=== PATIENT | female | born 1955 | race Asian ===

== ENCOUNTER 2016-11-14 14:12 | Outpatient (CLI) | payer OTHER | END 2016-11-14 14:13 | disposition home or self-care (01) | DX: M35.2 Behcet's disease (principal) ==

== ENCOUNTER 2017-01-01 09:32 | Emergency (ER) | payer OTHER ==
[2017-01-01] MEDS ORDERED: oxyCOD/ACETAMIN 5 MG/325 MG TABLET PO STA (11:46)
[2017-01-01] MEDS ORDERED: CLINDAMYCIN 150 MG CAPSULE PO STA (11:46)
[2017-01-01] MEDS ORDERED: TETANUS/DIPHTHERIA/PERTUSSIS 0.5 ML SYRINGE IM ONE ×2 (11:47→11:56)
[2017-01-01] MEDS ORDERED: oxyCOD/ACETAMIN 5 MG/325 MG TABLET PO ONE (11:55)
[2017-01-01] MEDS ORDERED: CLINDAMYCIN 150 MG CAPSULE PO ONE (11:56)
== END 2017-01-01 13:36 | disposition home or self-care (01) ==
DX: S92.515B Nondisplaced fracture of proximal phalanx of left lesser toe(s), initial encounter for open fracture (principal); W20.8XXA Other cause of strike by thrown, projected or falling object, initial encounter; Z23 Encounter for immunization; M20.12 Hallux valgus (acquired), left foot; M21.612 Bunion of left foot
CPT/HCPCS: 73630; 90471; 90715; 99283; 99284; A9270

== ENCOUNTER 2017-03-27 08:00 | Outpatient (CLI) | payer OTHER ==
[2017-03-27 18:49] LABS: BASOPHILS % (AUTO) 0.6 %; EOSINOPHILS # (AUTO) 0.1 10^3/uL (0.0-0.7); EOSINOPHILS % (AUTO) 1.3 %; HCT - HEMATOCRIT 41.5 % (37.0-47.0); HGB - HEMOGLOBIN 13.8 g/dL (12.0-16.0); LYMPHOCYTES # (AUTO) 1.9 10^3/uL (1.5-3.5); LYMPHOCYTES % (AUTO) 29.2 %; MEAN CORPUSCULAR HEMOGLOBIN 30.5 pg (27.0-31.0); MEAN CORPUSCULAR HGB CONC 33.4 g/dL (32.0-36.0); MEAN CORPUSCULAR VOLUME 91.5 fL (81.0-99.0); MONOCYTES # (AUTO) 0.5 10^3/uL (0.0-1.0); MONOCYTES % (AUTO) 7.2 %; NEUTROPHILS % (AUTO) 61.7 %; NUCLEATED RED BLOOD CELLS AUTO 0.1 /100WBC; RED BLOOD COUNT 4.54 10^6/uL (4.20-5.40); RED CELL DISTRIBUTION WIDTH 14.4 % (12.0-15.0); UNCORRECTED WHITE BLOOD COUNT 6.5 x10^3/uL; WHITE BLOOD COUNT 6.5 x10^3/uL (4.8-10.8)
[2017-03-27 19:09] LABS: ALBUMIN/GLOBULIN RATIO 1.2 (1.0-2.2); BILIRUBIN,TOTAL 0.5 mg/dL (0.2-1.0); CALCIUM 9.3 mg/dL (8.5-10.3); CREATININE 0.8 mg/dL (0.4-1.0); POTASSIUM 3.9 mmol/L (3.5-5.0); TOTAL PROTEIN 7.7 g/dL (6.7-8.2)
== END 2017-03-27 08:01 ==
LOC: LAB.WCP 08:00
PROVIDERS: ATTEND Internal Medicine Rheumatology
DX: M35.2 Behcet's disease (principal)
CPT/HCPCS: 36415; 80053; 85025; 85651

== ENCOUNTER 2017-04-02 08:00 | Outpatient (CLI) | payer OTHER | END 2017-04-02 08:01 | LOC: LAB.WCP 08:00 | PROVIDERS: ATTEND Internal Medicine Rheumatology | DX: M35.2 Behcet's disease (principal); M62.81 Muscle weakness (generalized) | CPT/HCPCS: 36415; 82550; 84443 ==

== ENCOUNTER 2017-04-10 12:08 | Emergency (ER) | payer OTHER ==
--- NOTE | 2017-04-10 13:11 | XRAY Preliminary Report ---
Exam: XR Ankle 3 View LT IMPRESSION: No bony abnormality. [facility] SITE ID: [id number]
--- NOTE | 2017-04-10 13:15 | XRAY Report ---
EXAM: LEFT ANKLE RADIOGRAPHY EXAM DATE: 04/10/2017 12:51 PM. CLINICAL HISTORY: Pain since a fall on 04/21/2017. Swelling for the last week. COMPARISON: No prior ankle. Left foot 01/01/2017. TECHNIQUE: 3 views. FINDINGS: Bones: Normal. No fractures or bone lesions. Joints: Normal. No effusion. No subluxations. The ankle mortise is normally aligned. Soft Tissues: Moderate edema over the lateral malleolus and hindfoot. IMPRESSION: No bony abnormality. [facility] Referring Provider Line: [phone] SITE ID: [id number]
--- NOTE | 2017-04-10 13:19 | ED Physician Documentation ---
History of Present Illness - Stated complaint Stated Complaint: LEFT FOOT SWELLING - Chief complaint Chief Complaint: Ext Problem - Additonal information Additional information: hx from pt to ER for 2 reasons 1) she injured her l foot in January, saw ortho, no surgery, healed, then fell March 24 and twisted l ankle, able to walk on it since but painful, now it is newly swollen and discolored, hurts to walk but no pain with passive ROM 2) subj fever and chills X 2 days and [facility] told her come to the ER t get worked up before she gets remocade infusion for Behcets tomorrow, no cough, no NVD, no urinary sx Review of Systems Constitutional: reports: Fever (subjective). 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, Other HEENT: Cataracts, Tonsil/Adenoidectomy - Present Medications Home Medications: Ambulatory Orders Medication Instructions Recorded Confirmed Acetaminophen [Tylenol] 650 mg [place] ONCE 02/18/13 04/10/17 Alendronate Sodium [Fosamax] 35 mg PO Q7D 02/18/13 04/10/17 Folic Acid 1 mg PO DAILY 02/18/13 04/10/17 Loratadine [Claritin] 10 mg PO ONCE PRN 02/18/13 04/10/17 Methotrexate 5 mg PO ONCE 02/18/13 04/10/17 Multivitamin [Multi-Vitamin Daily] 1 each PO DAILY 02/18/13 04/10/17 Prednisone 1 mg PO DAILY 02/18/13 04/10/17 Hydrochlorothiazide 1 tab PO DAILY 06/30/15 04/10/17 Saccharomyces Boulardii [Florastor] 250 mg PO BID #20 capsule 01/01/17 04/10/17 - Allergies Allergies/Adverse Reactions: Allergies Allergy/AdvReac Type Severity Reaction Status Date / Time ketorolac tromethamine * Allergy Unknown Itching Verified 04/10/17 13:16 [From Toradol] Penicillins Allergy Unknown Itching Verified 04/10/17 13:16 - Social History Does the pt smoke?: No Smoking Status: Never smoker Does the pt drink ETOH?: No Does the pt have substance abuse?: No PD ED PE NORMAL - Vitals Vital signs reviewed: Yes - HEENT HEENT: PERRL - Neck Neck: Supple, no meningeal sign - Cardiac Cardiac: RRR - Respiratory Respiratory: No respiratory distress, Clear bilaterally - Abdomen Abdomen: Soft, Non tender - Extremities Extremities: Other (L ankle swollen, slight reddish discoloration, no warmth, able to fully range passivle s any pain, TTP servando mall, MSV intact, no open wounds, no calf or popliteal TT) - Neuro Neuro: Alert and oriented X 3, No motor deficit, No sensory deficit Results - Vitals Vitals: Vital Signs - 24 hr 04/10/17 12:23 Temperature 36.2 C L Heart Rate 76 Respiratory 16 Rate Blood Pressure 141/76 H O2 Saturation 100 Oxygen O2 Source Room air - Labs Labs: Laboratory Tests 04/10/17 04/10/17 04/10/17 13:35 13:54 13:54 WBC 8.4 RBC 4.31 Hgb 12.9 Hct 39.1 MCV 90.6 MCH 30.0 MCHC 33.1 RDW 14.6 Plt Count 209 MPV 7.9 Neut # 6.0 Lymph # 1.5 [place] # 0.7 Eos # 0.1 Baso # 0.1 Absolute Nucleated RBC 0.00 Nucleated RBCs 0.0 ESR 48 H C-Reactive Protein Urine Color YELLOW Urine Clarity CLEAR Urine pH 7.0 Ur Specific [place] 1.015 Urine Protein NEGATIVE Urine Glucose (UA) NEGATIVE Urine Ketones NEGATIVE Urine Occult Blood TRACE-INTA Urine Nitrite NEGATIVE Urine Bilirubin NEGATIVE Urine Urobilinogen 0.2 (NORMAL) Ur Leukocyte Esterase NEGATIVE Ur Microscopic Review NOT INDICATED Urine Culture Comments NOT INDICATED 04/10/17 13:54 WBC RBC Hgb Hct MCV MCH MCHC RDW Plt Count MPV Neut # Lymph # [place] # Eos # Baso # Absolute Nucleated RBC Nucleated RBCs ESR C-Reactive Protein 12.2 H Urine Color Urine Clarity Urine pH Ur Specific Ed[place] Urine Protein Urine Glucose (UA) Urine Ketones Urine Occult Blood Urine Nitrite Urine Bilirubin Urine Urobilinogen Ur Leukocyte Esterase Ur Microscopic Review Urine Culture Comments - Rads (name of study) CXR Radiology: See rad report (NACPD) ankle Radiology: See rad report (STS no bony abn) PD MEDICAL DECISION MAKING - ED course ED course: issue 1 - ankle pain and swelling - subj fever at home but afebrile here nl WBC swollen and slightly dicolored but no warmth and absolutely no pain with passive ROM so doubt septic joint or gout, could be post trauatic with effusion and aged bruising but per pt dies seems like a delayed onset of findings, possibly inflammatory as pt has hx of behcets and elev inflammatory markers, will CE and rec ice and elev and refe to ortho for further eval issue 2 - subj fever at home, afebrile here, nl CXR neg urine, nl WBC, do not feel ankle in infected, think she can get her remicade infusion tomorrow but she should advise [facility] of sx and ER results that are available for them to review prior to making final decision Departure - Departure Disposition: Home, Self Care Clinical Impression: Ankle effusion Qualifiers: Laterality: left Qualified Code(s): M25.472 - Effusion, left ankle Condition: Good Follow-Up: [facility] [Provider Group] Carmen Osei DO [Primary Care Provider] - Comments: Your ankle is swollen and discolored. But the xrays do not show any bony abnormality. And the exam does not suggest an infected joint or gout. The swelling and discoloration could be from your ankle injury on March 24, or could be due to your Behcets - I recommend using an MAIA wrap to decrease the swelling and elevating and applying ice to the ankle for 20 minutes several times a day. Please call the orthopedic office to schedule follow up for further evaluation and management As far as your recent fevers, there is no fever here, your white blood cell count is normal, and there is no infection noted on exam or on your xray or urine sample. I would think it is OK for you to get your remicade infusion as planned - but be sure to let the [facility] staff know about your subjective fevers at home and they can review the ER test results and make the final decision about whether to proceed with the infusion. And please follow up with your PMD to get your blood pressure rechecked - it was high today
[2017-04-10 13:50] LABS: BILIRUBIN,URINE NEGATIVE (NEGATIVE)
[2017-04-10 13:51] LABS: UA CHARGE (STRIP ONLY) YES; UR CULTURE IF IND NOT INDICATED
--- NOTE | 2017-04-10 14:05 | XRAY Preliminary Report ---
Exam: XR Chest 2 View PA/LAT IMPRESSION: Normal 2-view chest radiography. No active disease [facility] SITE ID: [id number]
[2017-04-10 14:08] LABS: BASOPHILS # (AUTO) 0.1 10^3/uL (0.0-0.1); BASOPHILS % (AUTO) 0.9 %; EOSINOPHILS # (AUTO) 0.1 10^3/uL (0.0-0.7); EOSINOPHILS % (AUTO) 0.7 %; HCT - HEMATOCRIT 39.1 % (37.0-47.0); HGB - HEMOGLOBIN 12.9 g/dL (12.0-16.0); LYMPHOCYTES # (AUTO) 1.5 10^3/uL (1.5-3.5); MEAN CORPUSCULAR HGB CONC 33.1 g/dL (32.0-36.0); MEAN CORPUSCULAR VOLUME 90.6 fL (81.0-99.0); MEAN PLATELET VOLUME 7.9 fL (7.9-10.8); MONOCYTES # (AUTO) 0.7 10^3/uL (0.0-1.0); MONOCYTES % (AUTO) 8.6 %; NEUTROPHILS % (AUTO) 71.8 %; RED BLOOD COUNT 4.31 10^6/uL (4.20-5.40); RED CELL DISTRIBUTION WIDTH 14.6 % (12.0-15.0); UNCORRECTED WHITE BLOOD COUNT 8.4 x10^3/uL; WHITE BLOOD COUNT 8.4 x10^3/uL (4.8-10.8)
--- NOTE | 2017-04-10 14:16 | XRAY Report ---
EXAM: CHEST RADIOGRAPHY EXAM DATE: 04/10/2017 01:35 PM. CLINICAL HISTORY: Fever, on Remicade. COMPARISON: None. TECHNIQUE: 2 views. FINDINGS: Lungs/Pleura: No focal opacities evident. No pleural effusion. No pneumothorax. Normal volumes. Mediastinum: Heart and mediastinal contours are unremarkable. Other: None. IMPRESSION: Normal 2-view chest radiography. No active disease. [facility] Referring Provider Line: [phone] SITE ID: [id number]
[2017-04-10 16:00] VITALS: BP 144/83
== END 2017-04-10 16:02 | disposition home or self-care (01) ==
LOC: ED 12:08
DX: M25.472 Effusion, left ankle (principal); M19.90 Unspecified osteoarthritis, unspecified site
CPT/HCPCS: 36415; 71020; 81001; 81003; 85025; 85651; 86140; 87086; 99283

== ENCOUNTER 2017-06-23 14:30 | Outpatient (CLI) | payer OTHER ==
[2017-06-23 19:19] LABS: BASOPHILS % (AUTO) 0.5 %; EOSINOPHILS # (AUTO) 0.1 10^3/uL (0.0-0.7); EOSINOPHILS % (AUTO) 1.1 %; HCT - HEMATOCRIT 42.4 % (37.0-47.0); HGB - HEMOGLOBIN 13.9 g/dL (12.0-16.0); LYMPHOCYTES # (AUTO) 1.6 10^3/uL (1.5-3.5); LYMPHOCYTES % (AUTO) 23.7 %; MEAN CORPUSCULAR HEMOGLOBIN 30.2 pg (27.0-31.0); MEAN CORPUSCULAR HGB CONC 32.8 g/dL (32.0-36.0); MEAN PLATELET VOLUME 8.8 fL (7.9-10.8); MONOCYTES # (AUTO) 0.6 10^3/uL (0.0-1.0); MONOCYTES % (AUTO) 8.9 %; NEUTROPHILS # (AUTO) 4.4 10^3/uL (1.5-6.6); NEUTROPHILS % (AUTO) 65.8 %; RED CELL DISTRIBUTION WIDTH 14.5 % (12.0-15.0); UNCORRECTED WHITE BLOOD COUNT 6.7 x10^3/uL; WHITE BLOOD COUNT 6.7 x10^3/uL (4.8-10.8)
[2017-06-23 19:35] LABS: ALBUMIN/GLOBULIN RATIO 1.1 (1.0-2.2); BILIRUBIN,TOTAL 0.7 mg/dL (0.2-1.0); CALCIUM 9.4 mg/dL (8.5-10.3); POTASSIUM 3.8 mmol/L (3.5-5.0); TOTAL PROTEIN 7.6 g/dL (6.7-8.2)
== END 2017-06-23 14:31 | disposition home or self-care (01) ==
LOC: LAB.WCP 14:30
PROVIDERS: ATTEND Internal Medicine Rheumatology
DX: M35.2 Behcet's disease (principal)
CPT/HCPCS: 36415; 80053; 85025; 85651

== ENCOUNTER 2017-09-25 14:13 | Outpatient (CLI) | payer OTHER ==
[2017-09-25 19:13] LABS: BASOPHILS % (AUTO) 0.5 %; EOSINOPHILS # (AUTO) 0.1 10^3/uL (0.0-0.7); EOSINOPHILS % (AUTO) 1.8 %; HGB - HEMOGLOBIN 14.2 g/dL (12.0-16.0); LYMPHOCYTES # (AUTO) 2.4 10^3/uL (1.5-3.5); MEAN CORPUSCULAR HEMOGLOBIN 29.9 pg (27.0-31.0); MEAN CORPUSCULAR HGB CONC 32.6 g/dL (32.0-36.0); MEAN CORPUSCULAR VOLUME 91.6 fL (81.0-99.0); MEAN PLATELET VOLUME 9.2 fL (7.9-10.8); MONOCYTES # (AUTO) 0.7 10^3/uL (0.0-1.0); MONOCYTES % (AUTO) 10.5 %; NEUTROPHILS # (AUTO) 3.5 10^3/uL (1.5-6.6); NEUTROPHILS % (AUTO) 52.2 %; PLT - PLATELET COUNT 214 10^3/uL (130-450); RED BLOOD COUNT 4.75 10^6/uL (4.20-5.40); RED CELL DISTRIBUTION WIDTH 14.7 % (12.0-15.0); WHITE BLOOD COUNT 6.7 x10^3/uL (4.8-10.8)
[2017-09-25 19:18] LABS: ALBUMIN 4.3 g/dL (3.2-5.5); ALBUMIN/GLOBULIN RATIO 1.2 (1.0-2.2); BILIRUBIN,TOTAL 0.6 mg/dL (0.2-1.0); CALCIUM 9.3 mg/dL (8.5-10.3); CREATININE 0.9 mg/dL (0.4-1.0)
== END 2017-09-25 14:14 ==
LOC: LAB.WCP 14:13
PROVIDERS: ATTEND Internal Medicine Rheumatology
DX: M35.2 Behcet's disease (principal)
CPT/HCPCS: 36415; 80053; 85025; 85651

== ENCOUNTER 2017-11-23 11:07 | Outpatient (CLI) | payer OTHER ==
[2017-11-23 11:52] LABS: BASOPHILS % (AUTO) 0.4 %; EOSINOPHILS # (AUTO) 0.4 10^3/uL (0.0-0.7); EOSINOPHILS % (AUTO) 5.7 %; HGB - HEMOGLOBIN 13.1 g/dL (12.0-16.0); LYMPHOCYTES # (AUTO) 1.6 10^3/uL (1.5-3.5); LYMPHOCYTES % (AUTO) 22.1 %; MEAN CORPUSCULAR HEMOGLOBIN 29.8 pg (27.0-31.0); MEAN CORPUSCULAR HGB CONC 33.4 g/dL (32.0-36.0); MEAN CORPUSCULAR VOLUME 89.4 fL (81.0-99.0); MEAN PLATELET VOLUME 7.1 fL (7.9-10.8); MONOCYTES # (AUTO) 0.6 10^3/uL (0.0-1.0); MONOCYTES % (AUTO) 8.9 %; NEUTROPHILS # (AUTO) 4.6 10^3/uL (1.5-6.6); NEUTROPHILS % (AUTO) 62.9 %; PLT - PLATELET COUNT 348 10^3/uL (130-450); RED BLOOD COUNT 4.39 10^6/uL (4.20-5.40); RED CELL DISTRIBUTION WIDTH 14.2 % (12.0-15.0); WHITE BLOOD COUNT 7.3 x10^3/uL (4.8-10.8)
[2017-11-23 12:01] LABS: ALBUMIN 3.4 g/dL (3.2-5.5); ALBUMIN/GLOBULIN RATIO 0.7 (1.0-2.2); BILIRUBIN,TOTAL 0.6 mg/dL (0.2-1.0); CALCIUM 9.3 mg/dL (8.5-10.3); CREATININE 0.9 mg/dL (0.4-1.0); TOTAL PROTEIN 8.2 g/dL (6.7-8.2)
--- NOTE | 2017-11-23 13:44 | XRAY Report ---
EXAM: CHEST RADIOGRAPHY EXAM DATE: 11/23/2017 11:27 AM. CLINICAL HISTORY: PNEUMONIA. COMPARISON: 04/10/2017. TECHNIQUE: 2 views. FINDINGS: Lungs/Pleura: There is patchy consolidation at the bilateral lung bases, left greater than right. The re are small bilateral pleural effusions. No pneumothorax. Normal volumes. Mediastinum: Heart and mediastinal contours are unremarkable. Other: No acute osseous abnormality. IMPRESSION: Patchy consolidation at the bilateral lung bases, left greater than right, suspicious for pneumonia o r aspiration. There are small bilateral pleural effusions. [facility] Referring Provider Line: [phone] SITE ID: [id number]
--- NOTE | 2017-11-23 13:44 | XRAY Preliminary Report ---
Exam: XR CHEST 2 VIEW X-RAY IMPRESSION: Patchy consolidation at the bilateral lung bases, left greater than right, suspicious for pneumonia o r aspiration. There are small bilateral pleural effusions. [facility] SITE ID: [id number]
== END 2017-11-23 11:08 | disposition home or self-care (01) ==
LOC: LAB 11:07
PROVIDERS: ATTEND Specialist
DX: J15.9 Unspecified bacterial pneumonia (principal)
CPT/HCPCS: 36415; 71046; 80053; 85025

== ENCOUNTER 2017-12-08 10:55 | Outpatient (CLI) | payer OTHER ==
--- NOTE | 2017-12-08 13:26 | XRAY Report ---
TWO VIEW CHEST: 12/08/2017 CLINICAL INDICATION: Pneumonia. COMPARISON: 11/23/2017. FINDINGS: Frontal and lateral views of the chest demonstrate a normal cardiac silhouette. Bibasilar infiltrates have improved. Small right effusion persists. No pneumothorax. IMPRESSION: IMPROVING BIBASILAR INFILTRATES. STABLE SMALL RIGHT EFFUSION. TD: 12/08/2017 13:25
== END 2017-12-08 10:56 | disposition home or self-care (01) ==
LOC: DI.N 10:55
PROVIDERS: ATTEND Family Medicine
DX: J18.9 Pneumonia, unspecified organism (principal); J90 Pleural effusion, not elsewhere classified
CPT/HCPCS: 71046

== ENCOUNTER 2018-01-15 13:17 | Outpatient (CLI) | payer OTHER ==
[2018-01-15 19:04] LABS: BASOPHILS % (AUTO) 0.3 %; EOSINOPHILS # (AUTO) 0.1 10^3/uL (0.0-0.7); EOSINOPHILS % (AUTO) 1.4 %; HGB - HEMOGLOBIN 12.4 g/dL (12.0-16.0); LYMPHOCYTES % (AUTO) 24.7 %; MEAN CORPUSCULAR HEMOGLOBIN 28.6 pg (27.0-31.0); MEAN CORPUSCULAR VOLUME 89.5 fL (81.0-99.0); MEAN PLATELET VOLUME 8.8 fL (7.9-10.8); MONOCYTES # (AUTO) 0.8 10^3/uL (0.0-1.0); MONOCYTES % (AUTO) 9.8 %; NEUTROPHILS # (AUTO) 5.1 10^3/uL (1.5-6.6); NEUTROPHILS % (AUTO) 63.8 %; PLT - PLATELET COUNT 195 10^3/uL (130-450); RED BLOOD COUNT 4.32 10^6/uL (4.20-5.40); RED CELL DISTRIBUTION WIDTH 15.1 % (12.0-15.0)
[2018-01-15 19:20] LABS: ALBUMIN 3.8 g/dL (3.2-5.5); ALBUMIN/GLOBULIN RATIO 0.9 (1.0-2.2); BILIRUBIN,TOTAL 0.7 mg/dL (0.2-1.0); CALCIUM 8.9 mg/dL (8.5-10.3); CREATININE 0.8 mg/dL (0.4-1.0)
== END 2018-01-15 13:18 ==
LOC: LAB.WCP 13:17
PROVIDERS: ATTEND Internal Medicine Rheumatology
DX: M35.2 Behcet's disease (principal)
CPT/HCPCS: 36415; 80053; 85025; 85651

== ENCOUNTER 2018-03-12 12:07 | Outpatient (CLI) | payer OTHER ==
[2018-03-12 18:52] LABS: BASOPHILS % (AUTO) 0.7 %; EOSINOPHILS # (AUTO) 0.1 10^3/uL (0.0-0.7); EOSINOPHILS % (AUTO) 1.5 %; HGB - HEMOGLOBIN 13.5 g/dL (12.0-16.0); LYMPHOCYTES # (AUTO) 1.8 10^3/uL (1.5-3.5); MEAN CORPUSCULAR HEMOGLOBIN 29.8 pg (27.0-31.0); MEAN CORPUSCULAR VOLUME 93.4 fL (81.0-99.0); MEAN PLATELET VOLUME 8.4 fL (7.9-10.8); MONOCYTES # (AUTO) 0.5 10^3/uL (0.0-1.0); MONOCYTES % (AUTO) 9.1 %; NEUTROPHILS % (AUTO) 55.7 %; PLT - PLATELET COUNT 218 10^3/uL (130-450); RED BLOOD COUNT 4.54 10^6/uL (4.20-5.40); RED CELL DISTRIBUTION WIDTH 15.7 % (12.0-15.0); WHITE BLOOD COUNT 5.4 x10^3/uL (4.8-10.8)
[2018-03-12 19:28] LABS: ALBUMIN 3.7 g/dL (3.2-5.5); ALBUMIN/GLOBULIN RATIO 0.9 (1.0-2.2); BILIRUBIN,TOTAL 0.5 mg/dL (0.2-1.0); CALCIUM 9.2 mg/dL (8.5-10.3); CREATININE 0.7 mg/dL (0.4-1.0); TOTAL PROTEIN 7.8 g/dL (6.7-8.2)
== END 2018-03-12 12:08 | disposition home or self-care (01) ==
LOC: LAB.WCP 12:07
PROVIDERS: ATTEND Internal Medicine Rheumatology
DX: M35.2 Behcet's disease (principal)
CPT/HCPCS: 36415; 80053; 85025; 85651

== ENCOUNTER 2018-03-23 09:43 | Outpatient (CLI) | payer OTHER ==
--- NOTE | 2018-03-23 11:41 | XRAY Report ---
Procedure Date: 03/23/2018 Accession Number: [id number] / [id number] Procedure: FL - Modified Barium Swallow W/SP CPT Code: FULL RESULT: EXAM: Modified Barium Swallow W/SP DATE: 03/23/2018 10:46 AM CLINICAL HISTORY: DYSPHAGIA, OROPHARYNGEAL COMPARISON: None. TECHNIQUE: Under the direction of speech pathology, patient swallowed various consistencies of barium under lateral fluoroscopic observation of the neck. Fluoroscopic exposure time: 1 minute 36 seconds . Number of fluoroscopic images: 1. Cine fluoroscopy recorded. FINDINGS: Airway Protection: Normal epiglottic motion. No episodes of tracheal penetration or aspiration with all consistencies of barium. Other: None. Please also refer to full report from Speech Pathology. IMPRESSION: Normal modified barium swallow. No aspiration identified. [facility]
== END 2018-03-23 09:44 | disposition home or self-care (01) ==
LOC: DI 09:43
PROVIDERS: ATTEND Internal Medicine
DX: R13.12 Dysphagia, oropharyngeal phase (principal)
CPT/HCPCS: 74230

== ENCOUNTER 2018-05-28 14:07 | Outpatient (CLI) | payer OTHER ==
[2018-05-28 19:28] LABS: BASOPHILS % (AUTO) 0.6 %; EOSINOPHILS # (AUTO) 0.1 10^3/uL (0.0-0.7); EOSINOPHILS % (AUTO) 1.4 %; HGB - HEMOGLOBIN 13.6 g/dL (12.0-16.0); LYMPHOCYTES # (AUTO) 2.6 10^3/uL (1.5-3.5); LYMPHOCYTES % (AUTO) 40.4 %; MEAN CORPUSCULAR HEMOGLOBIN 30.2 pg (27.0-31.0); MEAN CORPUSCULAR HGB CONC 33.3 g/dL (32.0-36.0); MEAN CORPUSCULAR VOLUME 90.7 fL (81.0-99.0); MEAN PLATELET VOLUME 9.4 fL (7.9-10.8); MONOCYTES # (AUTO) 0.7 10^3/uL (0.0-1.0); NEUTROPHILS % (AUTO) 46.6 %; PLT - PLATELET COUNT 185 10^3/uL (130-450); RED BLOOD COUNT 4.51 10^6/uL (4.20-5.40); RED CELL DISTRIBUTION WIDTH 14.4 % (12.0-15.0); WHITE BLOOD COUNT 6.5 x10^3/uL (4.8-10.8)
[2018-05-28 19:54] LABS: ALBUMIN 3.9 g/dL (3.2-5.5); ALBUMIN/GLOBULIN RATIO 1.1 (1.0-2.2); BILIRUBIN,TOTAL 0.7 mg/dL (0.2-1.0); CALCIUM 9.1 mg/dL (8.5-10.3); CREATININE 0.9 mg/dL (0.4-1.0); TOTAL PROTEIN 7.4 g/dL (6.7-8.2)
== END 2018-05-28 14:08 ==
LOC: LAB.WCP 14:07
PROVIDERS: ATTEND Internal Medicine Rheumatology
DX: M35.2 Behcet's disease (principal)
CPT/HCPCS: 36415; 80053; 85025; 85651

== ENCOUNTER 2018-08-19 13:52 | Outpatient (CLI) | payer OTHER ==
[2018-08-19 19:11] LABS: BASOPHILS % (AUTO) 0.5 %; EOSINOPHILS # (AUTO) 0.1 10^3/uL (0.0-0.7); EOSINOPHILS % (AUTO) 1.3 %; HGB - HEMOGLOBIN 13.8 g/dL (12.0-16.0); LYMPHOCYTES # (AUTO) 2.6 10^3/uL (1.5-3.5); MEAN CORPUSCULAR HGB CONC 31.8 g/dL (32.0-36.0); MEAN CORPUSCULAR VOLUME 91.1 fL (81.0-99.0); MEAN PLATELET VOLUME 8.8 fL (7.9-10.8); MONOCYTES # (AUTO) 0.7 10^3/uL (0.0-1.0); MONOCYTES % (AUTO) 10.2 %; NEUTROPHILS # (AUTO) 3.1 10^3/uL (1.5-6.6); PLT - PLATELET COUNT 203 10^3/uL (130-450); RED BLOOD COUNT 4.78 10^6/uL (4.20-5.40); RED CELL DISTRIBUTION WIDTH 13.9 % (12.0-15.0); WHITE BLOOD COUNT 6.5 x10^3/uL (4.8-10.8)
[2018-08-19 19:24] LABS: ALBUMIN 4.2 g/dL (3.2-5.5); ALBUMIN/GLOBULIN RATIO 1.1 (1.0-2.2); BILIRUBIN,TOTAL 0.5 mg/dL (0.2-1.0); CALCIUM 9.6 mg/dL (8.5-10.3); CREATININE 0.9 mg/dL (0.4-1.0)
== END 2018-08-19 13:53 | disposition home or self-care (01) ==
LOC: LAB.WCP 13:52
PROVIDERS: ATTEND Internal Medicine Rheumatology
DX: M35.2 Behcet's disease (principal)
CPT/HCPCS: 36415; 80053; 85025; 85651

== ENCOUNTER 2018-10-20 08:00 | Outpatient (CLI) | payer OTHER ==
[2018-10-20 18:55] LABS: BASOPHILS % (AUTO) 0.5 %; EOSINOPHILS # (AUTO) 0.1 10^3/uL (0.0-0.7); HGB - HEMOGLOBIN 13.9 g/dL (12.0-16.0); LYMPHOCYTES # (AUTO) 2.2 10^3/uL (1.5-3.5); LYMPHOCYTES % (AUTO) 31.7 %; MEAN CORPUSCULAR HEMOGLOBIN 28.9 pg (27.0-31.0); MEAN CORPUSCULAR HGB CONC 32.1 g/dL (32.0-36.0); MEAN CORPUSCULAR VOLUME 90.2 fL (81.0-99.0); MEAN PLATELET VOLUME 8.5 fL (7.9-10.8); MONOCYTES # (AUTO) 0.6 10^3/uL (0.0-1.0); MONOCYTES % (AUTO) 8.6 %; NEUTROPHILS # (AUTO) 3.9 10^3/uL (1.5-6.6); NEUTROPHILS % (AUTO) 57.2 %; PLT - PLATELET COUNT 218 10^3/uL (130-450); RED CELL DISTRIBUTION WIDTH 13.8 % (12.0-15.0); WHITE BLOOD COUNT 6.9 x10^3/uL (4.8-10.8)
[2018-10-20 19:09] LABS: ALBUMIN 3.9 g/dL (3.2-5.5); BILIRUBIN,TOTAL 0.8 mg/dL (0.2-1.0); CALCIUM 9.2 mg/dL (8.5-10.3); CREATININE 0.9 mg/dL (0.4-1.0); TOTAL PROTEIN 7.9 g/dL (6.7-8.2)
== END 2018-10-20 23:59 | disposition home or self-care (01) ==
LOC: LAB.WCP 08:00
PROVIDERS: ATTEND Internal Medicine Rheumatology
DX: M35.2 Behcet's disease (principal)
CPT/HCPCS: 36415; 80053; 85025; 85651

== ENCOUNTER 2019-01-12 12:42 | Outpatient (CLI) | payer OTHER ==
[2019-01-12] MEDS ORDERED: ALBUTEROL NEB 2.5 MG/3 ML INH ONE ×2 (13:12→14:00)
== END 2019-01-12 12:43 | disposition home or self-care (01) ==
LOC: RT 12:42
PROVIDERS: ATTEND Internal Medicine Critical Care Medicine
DX: Z01.818 Encounter for other preprocedural examination (principal); J84.9 Interstitial pulmonary disease, unspecified
CPT/HCPCS: 94060; 94729

== ENCOUNTER 2019-06-09 08:00 | Outpatient (CLI) | payer OTHER ==
[2019-06-09 18:18] LABS: BASOPHILS % (AUTO) 0.6 %; EOSINOPHILS # (AUTO) 0.2 10^3/uL (0.0-0.7); EOSINOPHILS % (AUTO) 3.1 %; HGB - HEMOGLOBIN 14.6 g/dL (12.0-16.0); LYMPHOCYTES # (AUTO) 2.6 10^3/uL (1.5-3.5); LYMPHOCYTES % (AUTO) 36.4 %; MEAN CORPUSCULAR HEMOGLOBIN 29.5 pg (27.0-31.0); MEAN CORPUSCULAR HGB CONC 32.5 g/dL (32.0-36.0); MEAN CORPUSCULAR VOLUME 90.7 fL (81.0-99.0); MEAN PLATELET VOLUME 10.9 fL (7.9-10.8); MONOCYTES # (AUTO) 0.7 10^3/uL (0.0-1.0); MONOCYTES % (AUTO) 9.6 %; NEUTROPHILS # (AUTO) 3.5 10^3/uL (1.5-6.6); NEUTROPHILS % (AUTO) 50.2 %; PLT - PLATELET COUNT 211 10^3/uL (130-450); RED BLOOD COUNT 4.95 10^6/uL (4.20-5.40); RED CELL DISTRIBUTION WIDTH 13.6 % (12.0-15.0); WHITE BLOOD COUNT 7.1 x10^3/uL (4.8-10.8)
[2019-06-09 18:39] LABS: ALBUMIN 4.1 g/dL (3.2-5.5); BILIRUBIN,TOTAL 0.6 mg/dL (0.2-1.0); CALCIUM 9.4 mg/dL (8.5-10.3); CREATININE 0.9 mg/dL (0.4-1.0); TOTAL PROTEIN 8.2 g/dL (6.7-8.2)
== END 2019-06-09 23:59 | disposition home or self-care (01) ==
LOC: LAB.WCP 08:00
PROVIDERS: ATTEND Internal Medicine Rheumatology
DX: M35.2 Behcet's disease (principal)
CPT/HCPCS: 36415; 80053; 85025; 85651

== ENCOUNTER 2019-07-21 14:45 | Outpatient (CLI) | payer OTHER ==
--- NOTE | 2019-07-26 09:09 | Mammography Report ---
Reason: SCREENING MAMMO Procedure Date: 07/21/2019 Accession Number: [id number] / [id number] Procedure: MGN - Screening Mammo Dig Bilat CPT Code: Final Report FULL RESULT: EXAM: Screening Mammo Dig Bilat DATE: 07/21/2019 3:19 PM CLINICAL HISTORY: Screening encounter. History of nulliparity and early menses. TECHNIQUE: (B) - Bilateral CC and MLO views were obtained. COMPARISON: 06/30/2015 through 02/03/2012. PARENCHYMAL PATTERN: (D) - The breast(s) demonstrate(s) heterogeneously dense fibroglandular parenchyma. FINDINGS: There are coarse typically benign calcifications. There are no suspicious masses, calcifications, or areas of distortion. IMPRESSION: Benign findings. BI-RADS category 2. RECOMMENDATION: (ANNUAL) - Recommend routine annual screening mammography. BI-RADS CATEGORY: (2) - Benign Findings. STANDARD QUALIFYING STATEMENTS: 1. This examination was not reviewed with the aid of Computer-Aided Detection (CAD). 2. A negative or benign imaging report should not preclude biopsy if clinically suspicious findings are present. 3. Dense breasts may obscure an underlying neoplasm. 4. This examination was reviewed without the aid of 3D breast imaging (tomosynthesis).
== END 2019-07-21 14:46 | disposition home or self-care (01) ==
LOC: DI.N 14:45
DX: Z12.31 Encounter for screening mammogram for malignant neoplasm of breast (principal)
CPT/HCPCS: 77067

== ENCOUNTER 2019-10-15 11:47 | Outpatient (CLI) | payer MEDICARE, OTHER ==
[2019-10-15 12:16] LABS: BASOPHILS % (AUTO) 0.5 %; EOSINOPHILS # (AUTO) 0.2 10^3/uL (0.0-0.7); EOSINOPHILS % (AUTO) 3.2 %; LYMPHOCYTES % (AUTO) 29.5 %; MEAN CORPUSCULAR HEMOGLOBIN 29.5 pg (27.0-31.0); MEAN CORPUSCULAR HGB CONC 32.9 g/dL (32.0-36.0); MEAN CORPUSCULAR VOLUME 89.9 fL (81.0-99.0); MEAN PLATELET VOLUME 10.2 fL (7.9-10.8); MONOCYTES # (AUTO) 0.6 10^3/uL (0.0-1.0); MONOCYTES % (AUTO) 8.9 %; NEUTROPHILS # (AUTO) 3.8 10^3/uL (1.5-6.6); NEUTROPHILS % (AUTO) 57.7 %; PLT - PLATELET COUNT 194 10^3/uL (130-450); RED BLOOD COUNT 4.74 10^6/uL (4.20-5.40); RED CELL DISTRIBUTION WIDTH 13.3 % (12.0-15.0); WHITE BLOOD COUNT 6.6 x10^3/uL (4.8-10.8)
[2019-10-15 12:34] LABS: ALBUMIN 4.1 g/dL (3.2-5.5); BILIRUBIN,TOTAL 0.6 mg/dL (0.2-1.0); CALCIUM 9.3 mg/dL (8.5-10.3); CREATININE 0.9 mg/dL (0.4-1.0); TOTAL PROTEIN 8.1 g/dL (6.7-8.2)
== END 2019-10-15 11:48 | disposition home or self-care (01) ==
LOC: LAB 11:47
PROVIDERS: ATTEND Internal Medicine Rheumatology
DX: M35.2 Behcet's disease (principal)
CPT/HCPCS: 36415; 80053; 85025; 85651

== ENCOUNTER 2020-04-12 08:00 | Outpatient (CLI) | payer MEDICARE, OTHER ==
[2020-04-12 18:30] LABS: BASOPHILS % (AUTO) 0.5 %; EOSINOPHILS # (AUTO) 0.2 10^3/uL (0.0-0.7); EOSINOPHILS % (AUTO) 2.7 %; HGB - HEMOGLOBIN 13.7 g/dL (12.0-16.0); LYMPHOCYTES # (AUTO) 2.1 10^3/uL (1.5-3.5); LYMPHOCYTES % (AUTO) 32.9 %; MEAN CORPUSCULAR HEMOGLOBIN 29.2 pg (27.0-31.0); MEAN CORPUSCULAR HGB CONC 31.9 g/dL (32.0-36.0); MEAN CORPUSCULAR VOLUME 91.7 fL (81.0-99.0); MEAN PLATELET VOLUME 10.8 fL (7.9-10.8); MONOCYTES # (AUTO) 0.7 10^3/uL (0.0-1.0); MONOCYTES % (AUTO) 11.6 %; NEUTROPHILS # (AUTO) 3.3 10^3/uL (1.5-6.6); NEUTROPHILS % (AUTO) 52.1 %; PLT - PLATELET COUNT 204 10^3/uL (130-450); RED BLOOD COUNT 4.69 10^6/uL (4.20-5.40); WHITE BLOOD COUNT 6.2 x10^3/uL (4.8-10.8)
[2020-04-12 18:58] LABS: ALBUMIN 4.2 g/dL (3.2-5.5); ALBUMIN/GLOBULIN RATIO 1.1 (1.0-2.2); BILIRUBIN,TOTAL 0.8 mg/dL (0.2-1.0); CALCIUM 9.4 mg/dL (8.5-10.3); CREATININE 0.9 mg/dL (0.4-1.0); TOTAL PROTEIN 8.2 g/dL (6.7-8.2)
== END 2020-04-12 23:59 | disposition home or self-care (01) ==
LOC: LAB.WCP 08:00
PROVIDERS: ATTEND Internal Medicine Rheumatology
DX: M35.2 Behcet's disease (principal); R53.83 Other fatigue
CPT/HCPCS: 36415; 80053; 84443; 85025; 85651

== ENCOUNTER 2020-09-19 13:31 | Outpatient (CLI) | payer MEDICARE, OTHER ==
--- NOTE | 2020-09-20 09:18 | Mammography Report ---
BILATERAL DIGITAL SCREENING MAMMOGRAM 3D/2D: 09/19/2020 CLINICAL: Routine screening. Comparison is made to exams dated: 07/21/2019 mammogram - [facility], 06/17/2018 ma mmogram, 03/10/2017 mammogram - [facility], [facility], 04/12/2014 mammogram, and 03/18/2013 mammogram - [facility]. The tissue of both breasts is heterogeneously dense. This may lower the sensitivity of mammography. No significant masses, calcifications, or other findings are seen in either breast. There has been no significant interval change. IMPRESSION: NEGATIVE There is no mammographic evidence of malignancy. A 1 year screening mammogram is recommended. This exam was interpreted at Station ID: [id number]. NOTE: For mammograms, a report in lay terms will be sent to the patient. Approximately 15% of breast malignancies will not be visualized mammographically. In the management of a palpable breast mass, a negative mammogram must not discourage biopsy of a clinically suspicious lesion. Electronically Signed By: Mark Prince M.D. ddp/penrad:09/19/2020 16:18:32 ACR BI-RADS Category 1: Negative 3341F PARENCHYMAL PATTERN: (D) - The breast(s) demonstrate(s) heterogeneously dense fibroglandular parenchy ma. BI-RADS CATEGORY: (1) - 1 RECOMMENDATION: (ANNUAL) - Recommend routine annual screening mammography. [id number] 1 year screening LATERALITY: (B)
== END 2020-09-19 13:32 | disposition home or self-care (01) ==
LOC: DI.N 13:31
DX: Z12.31 Encounter for screening mammogram for malignant neoplasm of breast (principal)

== ENCOUNTER 2020-09-27 08:00 | Outpatient (CLI) | payer MEDICARE, OTHER ==
[2020-09-27 18:49] LABS: ALBUMIN 4.4 g/dL (3.2-5.5); ALBUMIN/GLOBULIN RATIO 1.1 (1.0-2.2); BILIRUBIN,TOTAL 0.6 mg/dL (0.2-1.0); CALCIUM 9.8 mg/dL (8.5-10.3); CREATININE 0.9 mg/dL (0.4-1.0); POTASSIUM 3.9 mmol/L (3.5-5.0); TOTAL PROTEIN 8.5 g/dL (6.7-8.2)
[2020-09-27 19:11] LABS: BASOPHILS % (AUTO) 0.4 %; EOSINOPHILS # (AUTO) 0.2 10^3/uL (0.0-0.7); EOSINOPHILS % (AUTO) 2.4 %; HCT - HEMATOCRIT 45.4 % (37.0-47.0); HGB - HEMOGLOBIN 14.5 g/dL (12.0-16.0); LYMPHOCYTES # (AUTO) 2.2 10^3/uL (1.5-3.5); LYMPHOCYTES % (AUTO) 31.4 %; MEAN CORPUSCULAR HEMOGLOBIN 28.9 pg (27.0-31.0); MEAN CORPUSCULAR HGB CONC 31.9 g/dL (32.0-36.0); MEAN CORPUSCULAR VOLUME 90.6 fL (81.0-99.0); MEAN PLATELET VOLUME 11.5 fL (7.9-10.8); MONOCYTES # (AUTO) 0.6 10^3/uL (0.0-1.0); MONOCYTES % (AUTO) 8.8 %; NEUTROPHILS % (AUTO) 56.6 %; PLT - PLATELET COUNT 202 10^3/uL (130-450); RED BLOOD COUNT 5.01 10^6/uL (4.20-5.40); RED CELL DISTRIBUTION WIDTH 13.8 % (12.0-15.0)
== END 2020-09-27 23:59 | disposition home or self-care (01) ==
LOC: LAB.WCP 08:00
PROVIDERS: ATTEND Internal Medicine Rheumatology
DX: I36.1 Nonrheumatic tricuspid (valve) insufficiency (principal); M62.81 Muscle weakness (generalized)
CPT/HCPCS: 36415; 80053; 82550; 84443; 85025; 85651

== ENCOUNTER 2021-03-28 08:00 | Outpatient (CLI) | payer MEDICARE, OTHER ==
[2021-03-28 18:16] LABS: ALBUMIN/GLOBULIN RATIO 0.9 (1.0-2.2); BILIRUBIN,TOTAL 0.6 mg/dL (0.2-1.0); CALCIUM 9.5 mg/dL (8.5-10.3); CREATININE 1.2 mg/dL (0.4-1.0); CRP - C-REACTIVE PROTEIN 1.5 mg/dL (0-1.0); TOTAL PROTEIN 8.5 g/dL (6.7-8.2)
[2021-03-28 18:26] LABS: BASOPHILS # (AUTO) 0.1 10^3/uL (0.0-0.1); BASOPHILS % (AUTO) 0.8 %; EOSINOPHILS # (AUTO) 0.2 10^3/uL (0.0-0.7); EOSINOPHILS % (AUTO) 2.6 %; HCT - HEMATOCRIT 44.8 % (37.0-47.0); LYMPHOCYTES # (AUTO) 2.1 10^3/uL (1.5-3.5); LYMPHOCYTES % (AUTO) 32.6 %; MEAN CORPUSCULAR HEMOGLOBIN 28.6 pg (27.0-31.0); MEAN CORPUSCULAR HGB CONC 31.3 g/dL (32.0-36.0); MEAN CORPUSCULAR VOLUME 91.4 fL (81.0-99.0); MEAN PLATELET VOLUME 10.7 fL (7.9-10.8); MONOCYTES # (AUTO) 0.5 10^3/uL (0.0-1.0); MONOCYTES % (AUTO) 8.3 %; NEUTROPHILS # (AUTO) 3.6 10^3/uL (1.5-6.6); NEUTROPHILS % (AUTO) 54.9 %; PLT - PLATELET COUNT 249 10^3/uL (130-450); RED CELL DISTRIBUTION WIDTH 13.8 % (12.0-15.0); WHITE BLOOD COUNT 6.5 x10^3/uL (4.8-10.8)
[2021-03-28 21:02] LABS: RHEUMATOID FACTOR NEGATIVE (Negative)
== END 2021-03-28 23:59 | disposition home or self-care (01) ==
LOC: LAB.WCP 08:00
PROVIDERS: ATTEND Internal Medicine Rheumatology
DX: M35.2 Behcet's disease (principal); M25.50 Pain in unspecified joint
CPT/HCPCS: 36415; 80053; 85025; 85651; 86140; 86200; 86225; 86430

== ENCOUNTER 2021-09-05 12:59 | Emergency (ER) | payer MEDICARE, OTHER ==
[2021-09-05 13:08] VITALS: BP 110/79
[2021-09-05] MEDS ORDERED: SULFAMETH/TRIMETH DS 800/160 MG TABLET PO STA (13:21)
[2021-09-05] MEDS ORDERED: cephALEXin 250 MG CAPSULE PO STA (13:21)
[2021-09-05] MEDS ORDERED: HYDROcod/ACETAM 5/325 MG TABLET PO STA (13:21)
[2021-09-05] MEDS ORDERED: predniSONE 20 MG TABLET PO STA (13:21)
--- NOTE | 2021-09-05 13:31 | ED Physician Documentation ---
History of Present Illness - Stated complaint Stated Complaint: LT FOOT PX - Chief complaint Chief Complaint: Ext Problem - History obtained from History obtained from: Patient - History of Present Illness Timing: How many days ago (3) Pain level max: 6 Pain level now: 5 - Additonal information Additional information: Patient is a 66-year-old female who presents to the emergency department left foot pain ongoing for the past 3 to 4 days. Redness and swelling at the first MTP joint. Worse with movement, better with rest. No fevers. No chills. Does not recall any injury. Has not had similar symptoms previously. 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 Denies any other medications at home. 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, Other HEENT: Cataracts, Tonsil/Adenoidectomy - Present Medications Home Medications: Ambulatory Orders Medication Instructions Recorded Confirmed Acetaminophen [Tylenol] 650 mg [place] ONCE 02/18/13 05/18/21 Loratadine [Claritin] 10 mg PO ONCE PRN 02/18/13 05/18/21 Multivitamin [Multi-Vitamin Daily] 1 each PO DAILY 02/18/13 05/18/21 hydroCHLOROthiazide 1 tab PO DAILY 06/30/15 05/18/21 [Hydrochlorothiazide] HYDROcod/ACETAM 5/325 [Jetmore 5/325] 1 - 2 ea PO Q6H PRN #14 tablet 09/05/21 Sulfamethox/Trimeth 800/160 1 each PO BID #14 tablet 09/05/21 [Bactrim Ds 800/160] cephALEXin [Keflex] 500 mg PO Q6H #28 cap 09/05/21 predniSONE [Deltasone] 40 mg PO DAILY #10 tablet 09/05/21 - Allergies Allergies/Adverse Reactions: Allergies Allergy/AdvReac Type Severity Reaction Status Date / Time ketorolac tromethamine * Allergy Unknown Itching Verified 09/05/21 13:04 [From Toradol] Penicillins Allergy Unknown Itching Verified 09/05/21 13:04 - Social History Does the pt smoke?: No Smoking Status: Never smoker Does the pt drink ETOH?: No Does the pt have substance abuse?: No PD ED PE NORMAL - Vitals Vital signs reviewed: Yes - General General: Alert and oriented X 3, No acute distress - HEENT HEENT: Moist mucous membranes - Neck Neck: Supple, no meningeal sign - Cardiac Cardiac: RRR - Respiratory Respiratory: No respiratory distress, Clear bilaterally - Derm Derm: Warm and dry - Extremities Extremities: Other (Left foot - erythema and swelling to the left first MTP joint. Neurovascularly intact. Pain with range of motion of the great toe. Otherwise normal examination of the foot.) - Neuro Neuro: Alert and oriented X 3 Results - Vitals Vitals: Vital Signs - 24 hr 09/05/21 13:05 Temperature 37.0 C Heart Rate 89 Respiratory 16 Rate Blood Pressure 110/79 O2 Saturation 99 Oxygen O2 Source Room air PD MEDICAL DECISION MAKING - ED course Complexity details: considered differential, d/w patient ED course: Patient with possible gout versus early cellulitis. Will place her on steroids and antibiotics. Patient is well-appearing, nontoxic. Afebrile. Will prescribe pain medications for home as well. I am prescribing a short course of short-acting opioid pain medication for this patient. 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 I have discussed that the opioids are for short term therapy only, and will not be refilled from the ED. patient counseled regarding signs and symptoms for which I believe and urgent re-evaluation would be necessary. Patient with good understanding of and agreement to plan and is comfortable going home at this time This document was made in part using voice recognition software. While efforts are made to proofread this document, sound alike and grammatical errors may occur. Departure - Departure Disposition: 01 Home, Self Care Clinical Impression: Gout Qualifiers: Gout site: foot Gout etiology: unspecified cause Chronicity: acute Laterality: left Qualified Code(s): M10.9 - Gout, unspecified Cellulitis Qualifiers: Site of cellulitis: extremity Site of cellulitis of extremity: lower extremity Laterality: left Qualified Code(s): L03.116 - Cellulitis of left lower limb Condition: Good Instructions: ED Infec Skin Cellulitis, ED Arthritis Gout, ED Diet Gout Follow-Up: ARNOLDO JARVIS MD [Primary Care Provider] - Within 1 week Prescriptions: Sulfamethox/Trimeth 800/160 [Bactrim Ds 800/160] 1 each PO BID #14 tablet predniSONE [Deltasone] 40 mg PO DAILY #10 tablet cephALEXin [Keflex] 500 mg PO Q6H #28 cap HYDROcod/ACETAM 5/325 [Jetmore 5/325] 1 - 2 ea PO Q6H PRN #14 tablet PRN Reason: Pain Comments: Please follow-up with your doctor for a recheck in 2 to 3 days. If you are not improving by Friday, you should return here for repeat evaluation. Take all antibiotics until gone. Return if you worsen. Your prescriptions were sent to the [facility] pharmacy. I am prescribing a short course of narcotic pain medication for you. These are potentially dangerous and addictive medications that should be used carefully. These medications may constipate you. Take an rxoi-bxh-mjwwnie stool softener (docusate) twice daily with plenty of water while taking these medications. If you go 24 hours without a bowel movement, take loju-jlt-epvjsnc miralax, per package instructions. Do not drink or drive while taking these medications. If you received narcotic or sedating medications while in the emergency depart ment, do not drive for 24 hours. Store this medication in a safe, secure place and out of reach of children. It is a violation of federal law to give or sell this medication to another person or to use in a manner other than prescribed. The ED will not refill narcotic prescriptions, including prescriptions lost or stolen. To dispose of unwanted medications: 1. [facility] at [address] in [place] has a medication drop box. They accept prescription medications (in pill form) Friday through Friday 9:00 a.m. to 5:00 p.m. 2. [facility] [employer] accepts prescription medications (in pill form only) for disposal year round. Call for more information. 3. Contact the [facility] for the next [facility] sponsored prescription drug collection event. , [phone], or [phone]; Discharge Date/Time: 09/05/21 13:51
== END 2021-09-05 13:51 | disposition home or self-care (01) ==
LOC: ED 12:59
DX: M10.072 Idiopathic gout, left ankle and foot (principal); L03.116 Cellulitis of left lower limb; M35.2 Behcet's disease
CPT/HCPCS: 99283; 99284; A9270; J7512

== ENCOUNTER 2022-05-17 08:00 | Outpatient (CLI) | payer MEDICARE, OTHER ==
--- NOTE | 2022-05-17 12:18 | XRAY Report ---
PROCEDURE: Ribs 2 View RT INDICATIONS: RIGHT RIB PAIN TECHNIQUE: 3 views of the right ribs were acquired. COMPARISON: Chest radiographs 12/08/2017 FINDINGS: Surgical changes and devices: None. Bones and chest wall: No acute displaced rib fracture. No suspicious bony lesions. Overlying soft tissues appear unremarkable. Lungs and pleura: The visualized lung appears clear. No pleural effusions or pneumothorax are visib le. IMPRESSION: No acute displaced rib fracture. Reviewed by: Jono Valentino MD on 05/17/2022 12:16 PM PDT Approved by: Jono Valentino MD on 05/17/2022 12:16 PM PDT Station ID: [id number]
--- NOTE | 2022-05-17 15:04 | XRAY Report ---
PROCEDURE: Chest 2 View X-Ray INDICATIONS: COUGH TECHNIQUE: 2 view(s) of the chest. COMPARISON: Right rib radiographs same day. Chest radiographs 12/08/2017. FINDINGS: Surgical changes and devices: None. Lungs and pleura: Lung volumes are low. Elevation of the right hemidiaphragm as before. Blunting of the costophrenic angles is present on the frontal view without definite pleural effusion evident on t he lateral view, could be related to atelectasis and/or scarring. Minimal bibasilar pulmonary opaciti es present. No pneumothorax. Mediastinum: Mediastinal contours are normal. Heart size is normal. Bones and chest wall: No suspicious bony abnormalities. Soft tissues appear unremarkable. IMPRESSION: Low lung volumes with minimal bibasilar pulmonary opacities, potentially atelectasis but aspiration o r pneumonia are difficult to exclude. Reviewed by: Jono Martinez MD on 05/17/2022 3:02 PM PDT Approved by: Jono Martinez MD on 05/17/2022 3:02 PM PDT Station ID: [id number]
== END 2022-05-17 23:59 | disposition home or self-care (01) ==
LOC: DI.N 08:00
PROVIDERS: ATTEND Physician Assistant Medical
DX: J18.9 Pneumonia, unspecified organism (principal); R07.81 Pleurodynia; R09.89 Other specified symptoms and signs involving the circulatory and respiratory systems

== ENCOUNTER 2022-08-12 09:41 | Outpatient (CLI) | payer MEDICARE, OTHER ==
--- NOTE | 2022-08-12 14:38 | DEXA Report ---
PROCEDURE: Dexa Spine and/or Hip INDICATIONS: OSTEOPOROSIS TECHNIQUE: Dual energy x-ray absorptiometry (DXA) was performed on a MeMed System. Regions measur ed are the AP Spine, femoral neck, and if needed forearm. COMPARISON: 11/04/2014. FINDINGS: Lumbar Spine: Bone Mineral Density 1.068 g/cm/cm,T score -0.9, normal. Previous T score of -2.0. Unclear if ther e has been true interval improvement or an increase in degenerative changes. Left Hip: Bone Mineral Density 0.956 g/cm/cm,T score -0.4, normal. Previous T score -0.7. Left Femoral Neck: Bone Mineral Density 0.839 g/cm/cm, T score -1.4, osteopenia. Previous T score -1.7. (T score greater or equal to -1.0: NORMAL) (T score from -1.1 to -2.4: OSTEOPENIA) (T score less than or equal to -2.5 to: OSTEOPOROSIS) Impression: Osteopenia. Patients with diagnosis of osteoporosis or osteopenia should have regular bone mineral density assess ment. For those eligible for Medicare, routine testing is allowed once every 2 years. Testing frequ ency can be increased for patients who have rapidly progressing disease or for those who are receivin g medical therapy to restore bone mass. Reviewed by: Jono Martinez MD on 08/12/2022 2:37 PM PST Approved by: Jono Martinez MD on 08/12/2022 2:37 PM PST Station ID: [id number]
== END 2022-08-12 09:42 | disposition home or self-care (01) ==
LOC: DI 09:41
PROVIDERS: ATTEND Internal Medicine Rheumatology
DX: M85.89 Other specified disorders of bone density and structure, multiple sites (principal)

== ENCOUNTER 2024-01-14 16:20 | Outpatient (CLI) | payer MEDICARE, OTHER ==
--- NOTE | 2024-01-14 19:31 | MRI Report ---
PROCEDURE: Lumbar Spine WO INDICATIONS: LOW BACK PAIN TECHNIQUE: Noncontrast sagittal T1 spin echo and T2 fast echo, sagittal STIR, axial T1 and T2 fast spin echo thr ough the lumbar spine. In cases with scoliosis, additional coronal T2 fast spin echo may be performe d. COMPARISON: None. FINDINGS: Image quality: Excellent. Alignment and Curvature: There is mild grade 1 anterolisthesis seen at the L4-L5 level. Bone Marrow: Marrow is of normal overall signal. Scattered foci of T1-weighted hyperintensity and T 2-weighted hyperintensity are seen, without increased STIR signal. These foci are attributed to benig n vertebral body hemangiomas. No acute vertebral body compression fractures. There is a remote T1 1 anterior wedge deformity, without acute features. 30% loss of height is seen anteriorly. Spinal Cord: Conus medullaris terminates at the L1 level. Visualized cord demonstrates normal signa l and size. Paraspinous Soft Tissues: No paravertebral masses. T12-L1: Normal in appearance. L1-L2: Normal in appearance. L2-L3: Normal in appearance. L3-L4: The disc height is relatively well preserved. Mild disc bulge is seen. Mild facet hypert rophy is seen. Mild bilateral neural foraminal narrowing is seen. No central canal narrowing is seen . L4-L5: The disc height and disc signal are well preserved. Mild disc bulge is seen. A superimpo sed central disc protrusion is seen. Moderate facet hypertrophy is seen. There is at least moderate bilateral neuroforaminal narrowing seen. Mild to moderate central canal narrowing is seen. L5-S1: The disc height is well-preserved. There is loss of disc signal seen. Mild disc bulge is seen. Mild to moderate facet hypertrophy can be seen. No significant neural foraminal or central keith l narrowing can be seen. 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 IMPRESSION: Lower lumbar spine degenerative changes are seen. Additional findings: Remote T11 anterior wedge deformity Reviewed by: Jareth Hogan MD on 01/14/2024 6:29 PM [facility] Approved by: Jareth Hogan MD on 01/14/2024 6:29 PM AKDT Station ID: [id number]
== END 2024-01-14 16:21 | disposition home or self-care (01) ==
LOC: DI 16:20
PROVIDERS: ATTEND Internal Medicine Rheumatology
DX: M51.36 Other intervertebral disc degeneration, lumbar region (principal); M47.816 Spondylosis without myelopathy or radiculopathy, lumbar region; M51.37 Other intervertebral disc degeneration, lumbosacral region; M47.817 Spondylosis without myelopathy or radiculopathy, lumbosacral region; M48.061 Spinal stenosis, lumbar region without neurogenic claudication